=== PATIENT | female | born 1940 | race Caucasian/White ===

== ENCOUNTER 2017-07-13 07:44 | Outpatient (CLI) | payer OTHER ==
[2014-10-20 09:21] VITALS: BP 137/79
[2017-07-13 08:27] LABS: eGFR (African) > 60; eGFR (Non-African) > 60
[2017-07-13 13:41] LABS: EOSINOPHILS % 4.6 % (0.0-6.8); MEAN CORPUSCULAR HEMOGLOBIN 30.9 pg (28.0-34.0); MEAN CORPUSCULAR VOLUME 89.5 fl (80.0-100.0); MONOCYTES % 6.8 % (0.0-11.0); NEUTROPHILS # 3.5 # k/uL (1.4-7.7)
== END 2017-07-13 07:45 ==
LOC: LAB 07:44
PROVIDERS: ATTEND Physician Assistant
DX: Z00.00 Encounter for general adult medical examination without abnormal findings (principal)
CPT/HCPCS: 36415; 80053; 80061; 84443; 85025

== ENCOUNTER 2018-08-29 08:12 | Outpatient (CLI) | payer OTHER ==
[2014-10-20 09:21] VITALS: BP 137/79
[2018-08-29 11:20] LABS: MEAN CORPUSCULAR HEMOGLOBIN 30.4 pg (28.0-34.0)
[2018-08-29 11:21] LABS: BASOPHILS % 0.6 (0.0-1.5); EOSINOPHILS % 4.8 % (0.0-6.8); MONOCYTES % 7.8 % (0.0-11.0); NEUTROPHILS # 3.7 # k/uL (1.4-7.7)
[2018-08-29 11:23] LABS: eGFR (Non-African) > 60
== END 2018-08-29 08:13 ==
LOC: LAB 08:12
PROVIDERS: ATTEND Family Medicine
DX: M81.0 Age-related osteoporosis without current pathological fracture (principal); Z00.00 Encounter for general adult medical examination without abnormal findings; R73.9 Hyperglycemia, unspecified
CPT/HCPCS: 36415; 77080; 80053; 83036; 85025

== ENCOUNTER 2018-12-22 11:05 | Emergency (ER) | payer OTHER ==
--- NOTE | 2018-12-22 11:51 | ED Physician Documentation ---
Fall - HPI Stated Complaint: slipped and fell on ice Chief Complaint: Fall Additional Information: Patient presents to ED after slipping and falling on ice this morning. Patient states she fell forward and hit her head. She denies any loss of consciousness, neck pain, nausea or vomiting. Patient reports a headache. Onset: just prior to arrival Where: home Context: slipped (on ice) r: mild Associated Symptoms:: no loss of consciousness Location of Pain/Injury: head (forehead) Injury to Right Extremity: none Injury to Left Extremity: none Further Comments: no - ROS CONST: no problems NEURO: denies: dizziness MS/SKIN/LYMPH: denies: weakness, numbness, neck pain EYES/ENT: none CVS/RESP: denies: chest pain, shortness of breath GI/: denies: nausea, vomiting - PAST HX Past History: none Allergies/Adverse Reactions: Allergies Allergy/AdvReac Type Severity Reaction Status Date / Time No Known Drug Allergies Allergy Verified 10/20/14 09:14 - SOCIAL HX Smoking History: cigarettes, greater than 1 pack/day Alcohol Use: none Drug Use: none - FAMILY HX Family History: none - VITAL SIGNS Vital Signs: Vital Signs Temp Pulse Resp BP Pulse Ox 98.0 F 86 16 149/100 96 12/22/18 11:19 12/22/18 11:19 12/22/18 11:19 12/22/18 11:19 12/22/18 11:19 - REVIEWED ASSESSMENTS Nursing Assessment Reviewed: Yes Vitals Reviewed: Yes Progress - Results/Orders Results/Orders: Patient Study Name: GAYLA WYATT I Date: Dec 22, 2018 11:49:17 AM [facility] Modality Type: CT\SR Gender: F Description: CT BRAIN W/O CONTRAST : 42 Institution: [facility] Physician: ADRIENNE HEART Examination: CT head without contrast History: Fall Comparison exam: None available Technique: Noncontrast head CT protocol. Findings: Ventricles and sulci are prominent. Cerebrocerebellar parenchyma dem onstrates periventricular low attenuation consistent with small vessel disease. No evidence for parenchymal hemorrhage. No evidence for mass or mass effect. No midline shift. No extra axial fluid collections. Partial visualization of the paranasal sinuses, mastoid air cells, orbits, skull and scalp without gross irregularity. Streak artifact from dental hardware. Impression: Advanced age related changes. No acute parenchymal process. No hemorrhage. Electronically signed on Dec 22, 2018 12:30:15 PM OFFLINE EDITOR by: Eliu Mcclain ED Results Lab/Radiology - Orders Orders: ED Orders Category Date Time Status CT BRAIN W/O CONTRAST Stat Exams 12/22/18 Ordered Fall Physical Exam - Physical Exam General Appearance: no acute distress, alert Head: trauma (left forehead hematoma) Neck: non-tender, painless ROM Eye: [place] ENT: nml external inspection Resp/CVS: chest non-tender, breath sounds nml Abdomen: soft, normal bowel sounds Neuro: oriented x3 Skin: color nml, no rash Back: normal inspection, no vertebral tenderness Extremities: atraumatic, pelvis stable Joint: joints nml, nml ROM - Lacy Coma Score Eyes Open: Spontaneous Speech: Oriented Motor: Obeys Commands Discharge Clincal Impression: Traumatic hematoma of head Qualifiers: Encounter type: initial encounter Qualified Code(s): S00.93XA - Contusion of unspecified part of head, initial encounter Referrals: Jose Juan Buenrostro MD [Primary Care Provider] - 2 Days Additional Instructions: 1. Tylenol and/or Ibuprofen as needed for pain 2. Apply ice to affected area as needed for comfort 3. Follow up with PCP within 1 week 4. Return to ER for new or worsening symptoms Condition: Stable Disposition: 01 HOME, SELF-CARE Decision to Admit: NO Date of Decison to Admit: 12/22/18 Decision Time: 12:46
[2018-12-22] MEDS ORDERED: HYDROcodone /APAP 5/325 1 EACH TABLET PO ONE (12:34)
[2018-12-22 13:34] VITALS: BP 135/99
--- NOTE | 2018-12-22 14:55 | Diagnostic Imaging Report ---
ADRIENNE HEART [facility] [id number] [facility] [address] [place], [place]. [address] Report Submission Date: Dec 22, 2018 12:30:15 PM NURSING RESIDENT Patient Study Name: GAYLA WYATT I Date: Dec 22, 2018 11:49:17 AM NURSING RESIDENT Modality Type: CT\SR Gender: F Description: CT BRAIN W/O CONTRAST : 42 Institution: [facility] Physician: ADRIENNE HEART Examination: CT head without contrast History: Fall Comparison exam: None available Technique: Noncontrast head CT protocol. Findings: Ventricles and sulci are prominent. Cerebrocerebellar parenchyma demonstrates periventricular low attenuation consistent with small vessel disease. No evidence for parenchymal hemorrhage. No evidence for mass or mass effect. No midline shift. No extra axial fluid collections. Partial visualization of the paranasal sinuses, mastoid air cells, orbits, skull and scalp without gross irregularity. Streak artifact from dental hardware. Impression: Advanced age related changes. No acute parenchymal process. No hemorrhage. Electronically signed on Dec 22, 2018 12:30:15 PM NURSING RESIDENT by: Eliu CRAIG
== END 2018-12-22 13:29 | disposition home or self-care (01) ==
LOC: ED 11:05
DX: S00.83XA Contusion of other part of head, initial encounter (principal); W00.9XXA Unspecified fall due to ice and snow, initial encounter; Y93.9 Activity, unspecified; Y92.009 Unspecified place in unspecified non-institutional (private) residence as the place of occurrence of the external cause
CPT/HCPCS: 70450; 99283; A9270

== ENCOUNTER 2019-02-27 08:35 | Outpatient (CLI) | payer OTHER ==
[2019-02-27 09:06] LABS: MONOCYTES % 6.9 % (0.0-11.0)
[2019-02-27 09:09] LABS: BASOPHILS % 1.3 % (0.0-1.5); EOSINOPHILS % 4.2 % (0.0-6.8); NEUTROPHILS # 5.5 # k/uL (1.4-7.7)
== END 2019-02-27 08:37 ==
LOC: LAB 08:35
PROVIDERS: ATTEND Family Medicine
DX: R19.7 Diarrhea, unspecified (principal)
CPT/HCPCS: 36415; 85025